=== PATIENT | female | born 1995 | race Caucasian/White ===

== ENCOUNTER 2018-07-30 10:13 | Emergency (ER) | payer OTHER, SELFPAY ==
[2018-07-30 10:15] VITALS: BP 155/93; PULSE 74; RESP 16; TEMP 36.8; O2SAT 99
--- NOTE | 2018-07-30 10:22 | ED.ANXIETY ---
HPI - Anxiety General Chief Complaint: Anxiety Stated Complaint: Psych Time Seen by Provider: 07/30/18 10:13 Source: patient, family and EMS Mode of arrival: EMS History of Present Illness HPI narrative: 22-year-old female presents by EMS for an excited delirium at the [facility]. Patient was being transported by her family for psychiatric evaluation [facility], per the request another family member whom works there. She has no existing psychiatric diagnosis but for the past few days has been acting very much out of sorts. She has no history of psychiatric illness and has never been hospitalized. Over the past few days the patient has become intensely paranoid about many things and has had rambling thoughts and ideas. She has not been ill and denies headache, fever or chills. She was seen by psychiatrist in billing him yesterday with an unknown disposition or plan. Today they were getting off the [place] and her behavior escalated and she became out of control and was trying to run and was potentially running into traffic in was a significant risk to herself. EMS was called and after attempts at verbal the escalation the patient continued to escalate and was therefore given ketamine 400 mg IM prior to her arrival. 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 Onset (ago): day(s) Quality: constant Place: home Provoking factors: none known Related Data Home Medications Medication Instructions Recorded Confirmed No Known Home Medications 07/30/18 07/30/18 Allergies Allergy/AdvReac Type Severity Reaction Status Date / Time No Known Drug Allergies Allergy Verified 07/30/18 10:29 Review of Systems Review of Systems All systems reviewed & are unremarkable except as noted in HPI and below Constitutional Denies chills, Denies fever(s), Denies lethargy and Denies weakness Eyes Denies change in vision, Denies eye discharge, Denies irritation and Denies loss of vision ENT Ears, Nose, Mouth, and Throat: Denies change in voice, Denies neck pain and Denies sore throat Cardiovascular Denies chest pain, Denies irregular heart rhythm, Denies lightheadedness, Denies palpitations, Denies dyspnea, Denies dyspnea on exertion and Denies orthopnea Respiratory Denies cough, Denies dyspnea, Denies dyspnea on exertion and Denies wheezing Gastrointestinal Gastrointestinal: Denies abdominal pain, Denies change in bowel habits, Denies diarrhea, Denies nausea and Denies vomiting Genitourinary Denies hematuria, Denies flank pain, Denies urinary incontinence and Denies urinary urgency Musculoskeletal Denies neck pain Integumentary/Breasts Denies pruritus, Denies erythema, Denies rash and Denies wounds Neurologic Reports behavioral changes, Denies confusion, Denies loss of vision and Denies weakness Psychiatric Reports anxiety, Reports behavioral changes, Denies confusion, Denies depression, Reports panic attacks, Reports paranoia, Denies homicidal ideation and Denies suicidal ideation Endocrine Denies palpitations Hematologic/Lymphatic Denies easy bruising Allergic/Immunologic Denies wheezing [facility] Social History Smoking Status: Never smoker Exam Initial Vital Signs Initial Vital Signs: Vital Signs Temperature 98.3 F 07/30/18 10:15 Pulse Rate 74 07/30/18 10:15 Respiratory Rate 16 07/30/18 10:15 Blood Pressure 155/93 H 07/30/18 10:15 Pulse Oximetry 99 07/30/18 10:15 Const General: cooperative and well developed Nutritional Appearance: well nourished Orientation: alert, awake, oriented x3 and not confused [facility] Head: normocephalic and atraumatic Ears: external ears normal and TM's normal bilaterally Nose: external nose normal and No nasal discharge Face and sinus: sinuses nontender, face symmetric, no sinus tenderness and No dry mucous membranes Mouth: oral mucosae normal and moist mucous membranes Teeth and gingiva: dentition normal Throat: tonsils normal and uvula midline Eyes General: appearance normal, both eyes and all related structures Eyelids: eyelids normal Conjunctivae: conjunctivae normal Sclera: sclerae normal Pupils: PERRL EOM: EOM intact bilaterally Neck Neck: normal visual inspection, trachea midline, No lymphadenopathy, No midline deformity and No JVD Lymphatic: No lymphedema Chest Chest: normal inspection of the chest Resp Effort & Inspection: normal respiratory effort, able to speak in complete sentences, no respiratory distress and no use of accessory muscles Auscultation: clear to auscultation bilaterally, no rales, no rhonchi and no wheezes Cardio Rate: regular rate Rhythm: regular rhythm Heart Sounds: no click, no gallops, no murmurs and no rubs Pulses: normal peripheral pulses GI Inspection: non-distended Palpation: soft, no hepatosplenomegaly, No guarding, No pulsatile mass and No tender Auscultation: normal bowel sounds Back/Spine/Pelvis Back: No CVA tenderness Cervical Spine: cervical ROM normal and No pain with cervical ROM Thoracic/Lumbar Spine: thoracic and lumbar spine normal to inspection Skin General: no rashes or lesions noted, No jaundice and No petechiae Neuro General: alert, oriented x3, gait normal and no focal motor deficits Speech: speech normal Extrem General: full ROM, no clubbing, cyanosis or edema, no pedal edema and no calf tenderness Psych Appearance: disheveled Mental Status: mental status grossly normal Speech and Movement: agitated and pressured speech Mood: anxious mood and paranoid Affect: anxious affect and irritable affect Attitude: cooperative Thought Content: normal and suicidality Judgment: judgment good Course Orders Ordered: ED Orders 07/30/18 12:37 Urine Drug Screen, Rapid Stat Discontinued Medications Sodium Chloride (Normal Saline 0.9%) 1,000 mls @ 1,000 mls/hr IV BOLUS ONE Stop: 07/30/18 11:17 Last Admin: 07/30/18 12:00 Dose: Not Given Lorazepam (Ativan) 2 mg IM NOW ONE Stop: 07/30/18 19:37 Last Admin: 07/30/18 20:01 Dose: 2 mg Olanzapine (Zyprexa Zydis) 10 mg PO NOW ONE Stop: 07/30/18 18:15 Last Admin: 07/30/18 18:14 Dose: 10 mg Reevaluation(s) Reevaluation #1: As the ketamine has worn off the patient has become visibly upset and confused. She has tried eloping on multiple occasions and is very paranoid and upset that we are trying to hurt her. She is struggling and fighting with providers and parents speaking nonsensically. She has been put into our room 13 as she is clearly a risk to injure herself. Violent restraint ordered. Reevaluation #2: Patient medically cleared. DCR called. Reevaluation #3: patient has calmed down and mentions that she thinks she has heard voices and/or seen hallucinations for some time but admits to never having a break like this. Her periods of clarity are interrupted by rapid changes in her behavior in which she tries to run and escape the department. She screams and cries and when she calms down mentions that she is terrified of what might happen to her. She has never been under the care of a psychiatrist in care is no diagnoses. Though she may have had symptoms for some time she absolutely has never had a significant breakdown like this. She has become gravely disabled and clearly cannot care for herself. Additional Reevaluation(s): Patient is becoming a bit agitated again, is open to receiving Ativan 2mg IM. 2035 patient resting comfortably, EMS here for transport Consultations Consultation #1: available bed found at [facility] by DCR. Vital Signs - 8 hr 07/30/18 10:15 07/30/18 11:05 Temperature 98.3 F Pulse Rate 74 Respiratory Rate 16 Blood Pressure 155/93 H Blood Pressure [Right Arm] 153/91 H Pulse Oximetry 99 MDM - Anxiety Differential Diagnosis Differential diagnosis: Likely panic disorder and acute anxiety Medical Records Attestation: I reviewed the patient's medical records. Lab Data Attestation: I reviewed the patient's lab results. Result diagrams: 07/30/18 10:22 07/30/18 10:22 Lab Results 07/30/18 07/30/18 07/30/18 Range/Units 10:22 10:22 10:22 WBC 8.1 (4.5-11.0) X10^3/uL RBC 4.82 (4.0-5.2) X10^6/uL Hgb 14.0 (12.0-16.0) g/dL Hct 40.6 (36-46) % MCV 84.1 (80-100) fL MCH 28.9 (26-34) PG MCHC 34.4 (30-36) % RDW 13.3 (11.6-14.8) % Plt Count 196 (150-400) X10^3/uL Neut % (Auto) 80.4 H (50-75) % Lymph % (Auto) 13.5 L (25-40) % [place] % (Auto) 5.6 (3-14) % Eos % (Auto) 0.1 L (2-4) % Baso % (Auto) 0.4 (0-2) % Neut # (Auto) 6500 H (2675-9429) /uL Sodium 146 H (137-145) mmol/L Potassium 3.4 (3.4-5.1) mmol/L Chloride 106 (98-107) mmol/L Carbon Dioxide 24 (22-32) mmol/L BUN 14 (7-17) mg/dL Creatinine 0.80 (0.52-1.04) mg/dL Estimated GFR > 60.0 (>60) mL/min BUN/Creatinine Ratio 17.5 (6-22) Glucose 111 H (70-100) mg/dL Calcium 9.8 (8.4-10.2) mg/dL Total Bilirubin 1.5 H (0.2-1.3) mg/dL AST 33 (14-36) IU/L ALT 35 (9-52) IU/L Alkaline Phosphatase 72 (38-126) U/L Total Protein 8.2 (6.3-8.2) g/dL Albumin 5.1 H (3.5-5.0) g/dL Globulin 3.1 (1.7-4.1) g/dL Albumin/Globulin Ratio 1.6 (1.0-2.8) TSH 0.63 (0.47-4.68) uIU/mL Salicylates < 1.0 (<20) mg/dL Urine Opiates Screen (Negative) Ur Oxycodone Screen (Negative) Urine Methadone Screen (Negative) Acetaminophen < 10 L (10-30) ug/mL Ur Barbiturates Screen (Negative) U Tricyclic Antidepress (Negative) Ur Phencyclidine Scrn (Negative) Ur Amphetamines Screen (Negative) U Methamphetamines Scrn (Negative) Ur MDMA Scrn (Ecstasy) (Negative) U Benzodiazepines Scrn (Negative) Urine Cocaine Screen (Negative) U Marijuana (THC) Screen (Negative) Ethyl Alcohol < 10 mg/dL 07/30/18 Range/Units 12:37 WBC (4.5-11.0) X10^3/uL RBC (4.0-5.2) X10^6/uL Hgb (12.0-16.0) g/dL Hct (36-46) % MCV (80-100) fL MCH (26-34) PG MCHC (30-36) % RDW (11.6-14.8) % Plt Count (150-400) X10^3/uL Neut % (Auto) (50-75) % Lymph % (Auto) (25-40) % [place] % (Auto) (3-14) % Eos % (Auto) (2-4) % Baso % (Auto) (0-2) % Neut # (Auto) (3303-7560) /uL Sodium (137-145) mmol/L Potassium (3.4-5.1) mmol/L Chloride (98-107) mmol/L Carbon Dioxide (22-32) mmol/L BUN (7-17) mg/dL Creatinine (0.52-1.04) mg/dL Estimated GFR (>60) mL/min BUN/Creatinine Ratio (6-22) Glucose (70-100) mg/dL Calcium (8.4-10.2) mg/dL Total Bilirubin (0.2-1.3) mg/dL AST (14-36) IU/L ALT (9-52) IU/L Alkaline Phosphatase (38-126) U/L Total Protein (6.3-8.2) g/dL Albumin (3.5-5.0) g/dL Globulin (1.7-4.1) g/dL Albumin/Globulin Ratio (1.0-2.8) TSH (0.47-4.68) uIU/mL Salicylates (<20) mg/dL Urine Opiates Screen Negative (Negative) Ur Oxycodone Screen Negative (Negative) Urine Methadone Screen Negative (Negative) Acetaminophen (10-30) ug/mL Ur Barbiturates Screen Negative (Negative) U Tricyclic Antidepress Negative (Negative) Ur Phencyclidine Scrn Negative (Negative) Ur Amphetamines Screen Negative (Negative) U Methamphetamines Scrn Negative (Negative) Ur MDMA Scrn (Ecstasy) Negative (Negative) U Benzodiazepines Scrn Negative (Negative) Urine Cocaine Screen Negative (Negative) U Marijuana (THC) Screen Positive H (Negative) Ethyl Alcohol mg/dL Point of Care Testing Test Results Negative Urine Dip Bedside Urine Glucose Negative Bedside Urine Bilirubin - Negative Bedside Urine Ketone ++ 40 Urine Specific Diagonal 1.030 Bedside Urine Occult Blood - Negative Bedside Urine pH 6.0 Bedside Urine Protein + 30 Bedside Urine Urobilinogen - Negative Bedside Urine Nitrite - Negative Bedside Urine Leukocytes - Negative Esterase Discharge Plan Departure Patient Disposition: Xfer Psychiatric Hosp Clinical Impression: Acute psychosis
[2018-07-30 10:34] LABS: Add Manual Diff / Slide Review NO; Basophils Percent Auto 0.4 % (0-2); Eosinophils Percent Auto 0.1 % (2-4); Hematocrit 40.6 % (36-46); Lymphocytes Percent Auto 13.5 % (25-40); Mean Corpuscular HGB Conc 34.4 % (30-36); Mean Corpuscular Hemoglobin 28.9 PG (26-34); Mean Corpuscular Volume 84.1 fL (80-100); Monocytes Percent Auto 5.6 % (3-14); Neutrophils Absolute Auto 6500 /uL (3000-5900); Neutrophils Percent Auto 80.4 % (50-75); Platelet Count 196 X10^3/uL (150-400); Red Blood Cell Count 4.82 X10^6/uL (4.0-5.2); Red Cell Distribution Width 13.3 % (11.6-14.8); White Blood Cell Count 8.1 X10^3/uL (4.5-11.0)
[2018-07-30 10:44] LABS: Acetaminophen < 10 ug/mL (10-30); Alanine Aminotransferase 35 IU/L (9-52); Albumin 5.1 g/dL (3.5-5.0); Albumin Globulin Ratio 1.6 (1.0-2.8); Alkaline Phosphatase 72 U/L (38-126); Aspartate Aminotransferase 33 IU/L (14-36); BUN Creatinine Ratio 17.5 (6-22); Bilirubin Total 1.5 mg/dL (0.2-1.3); Blood Urea Nitrogen 14 mg/dL (7-17); Calcium 9.8 mg/dL (8.4-10.2); Carbon Dioxide 24 mmol/L (22-32); Chloride 106 mmol/L (98-107); Estimated Glomerular Filt Rate > 60.0 mL/min (>60); Ethanol (ETOH) < 10 mg/dL; Globulin 3.1 g/dL (1.7-4.1); Glucose 111 mg/dL (70-100); HEMOLYSIS < 15 (0-50); Potassium 3.4 mmol/L (3.4-5.1); Sodium 146 mmol/L (137-145); Total Protein 8.2 g/dL (6.3-8.2)
[2018-07-30 10:50] LABS: Salicylate < 1.0 mg/dL (<20)
[2018-07-30 11:05] VITALS: BP 153/91
[2018-07-30 11:31] LABS: Thyroid Stimulating Hormone 0.63 uIU/mL (0.47-4.68)
--- NOTE | 2018-07-30 11:31 | PC.NURSE ---
Pt does not have IV
--- NOTE | 2018-07-30 11:57 | PC.NURSE ---
Cannot do psych or anxiety assessments due to medications given [employer]
--- NOTE | 2018-07-30 12:38 | PC.NURSE ---
Patient was wandering the tee by the nursing station and was purposefully dropping herself on her knees to then lay on the floor. I assisted patients mother in picking her up and walking her back to the bedroom. After patient was vomiting she looked at me and grabbed my butt while making eye contact. I redirected her to put her hands on herself, and got her laying back down in bed.
[2018-07-30 12:51] LABS: Urine Amphetamines Negative (Negative); Urine Barbiturates Negative (Negative); Urine Benzodiazepines Negative (Negative); Urine Cocaine Negative (Negative); Urine MDMA Negative (Negative); Urine Methadone Negative (Negative); Urine Methamphetamines Negative (Negative); Urine Morphine/Opi cutoff 2000 Negative (Negative); Urine Oxycodone Negative (Negative); Urine Phencyclidine Negative (Negative); Urine Tetrahydrocannabinol Positive (Negative); Urine Tricyclic Antidepressant Negative (Negative)
--- NOTE | 2018-07-30 13:13 | ED_ITS ---
HPI - Anxiety General Chief Complaint: Anxiety Stated Complaint: Psych Time Seen by Provider: 07/30/18 10:13 Source: patient, family and EMS Mode of arrival: EMS History of Present Illness HPI narrative: 22-year-old female presents by EMS for an excited delirium at the [facility]. Patient was being transported by her family for psychiatric evaluation [facility], per the request another family member whom works there. She has no existing psychiatric diagnosis but for the past few days has been acting very much out of sorts. She has no history of psychiatric illness and has never been hospitalized. Over the past few days the patient has become intensely paranoid about many things and has had rambling thoughts and ideas. She has not been ill and denies headache, fever or chills. She was seen by psychiatrist in billing him yesterday with an unknown disposition or plan. Today they were getting off the [place] and her behavior escalated and she became out of control and was trying to run and was potentially running into traffic in was a significant risk to herself. EMS was called and after attempts at verbal the escalation the patient continued to escalate and was therefore given ketamine 400 mg IM prior to her arrival. 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 Onset (ago): day(s) Quality: constant Place: home Provoking factors: none known Related Data Home Medications Medication Instructions Recorded Confirmed No Known Home Medications 07/30/18 07/30/18 Allergies Allergy/AdvReac Type Severity Reaction Status Date / Time No Known Drug Allergies Allergy Verified 07/30/18 10:29 Review of Systems Review of Systems All systems reviewed & are unremarkable except as noted in HPI and below Constitutional Denies chills, Denies fever(s), Denies lethargy and Denies weakness Eyes Denies change in vision, Denies eye discharge, Denies irritation and Denies loss of vision ENT Ears, Nose, Mouth, and Throat: Denies change in voice, Denies neck pain and Denies sore throat Cardiovascular Denies chest pain, Denies irregular heart rhythm, Denies lightheadedness, Denies palpitations, Denies dyspnea, Denies dyspnea on exertion and Denies orthopnea Respiratory Denies cough, Denies dyspnea, Denies dyspnea on exertion and Denies wheezing Gastrointestinal Gastrointestinal: Denies abdominal pain, Denies change in bowel habits, Denies diarrhea, Denies nausea and Denies vomiting Genitourinary Denies hematuria, Denies flank pain, Denies urinary incontinence and Denies urinary urgency Musculoskeletal Denies neck pain Integumentary/Breasts Denies pruritus, Denies erythema, Denies rash and Denies wounds Neurologic Reports behavioral changes, Denies confusion, Denies loss of vision and Denies weakness Psychiatric Reports anxiety, Reports behavioral changes, Denies confusion, Denies depression , Reports panic attacks, Reports paranoia, Denies homicidal ideation and Denies suicidal ideation Endocrine Denies palpitations Hematologic/Lymphatic Denies easy bruising Allergic/Immunologic Denies wheezing [facility] Social History Smoking Status: Never smoker Exam Initial Vital Signs Initial Vital Signs: Vital Signs Temperature 98.3 F 07/30/18 10:15 Pulse Rate 74 07/30/18 10:15 Respiratory Rate 16 07/30/18 10:15 Blood Pressure 155/93 H 07/30/18 10:15 Pulse Oximetry 99 07/30/18 10:15 Const General: cooperative and well developed Nutritional Appearance: well nourished Orientation: alert, awake, oriented x3 and not confused [facility] Head: normocephalic and atraumatic Ears: external ears normal and TM's normal bilaterally Nose: external nose normal and No nasal discharge Face and sinus: sinuses nontender, face symmetric, no sinus tenderness and No dry mucous membranes Mouth: oral mucosae normal and moist mucous membranes Teeth and gingiva: dentition normal Throat: tonsils normal and uvula midline Eyes General: appearance normal, both eyes and all related structures Eyelids: eyelids normal Conjunctivae: conjunctivae normal Sclera: sclerae normal Pupils: PERRL EOM: EOM intact bilaterally Neck Neck: normal visual inspection, trachea midline, No lymphadenopathy, No midline deformity and No JVD Lymphatic: No lymphedema Chest Chest: normal inspection of the chest Resp Effort & Inspection: normal respiratory effort, able to speak in complete sentences, no respiratory distress and no use of accessory muscles Auscultation: clear to auscultation bilaterally, no rales, no rhonchi and no wheezes Cardio Rate: regular rate Rhythm: regular rhythm Heart Sounds: no click, no gallops, no murmurs and no rubs Pulses: normal peripheral pulses GI Inspection: non-distended Palpation: soft, no hepatosplenomegaly, No guarding, No pulsatile mass and No tender Auscultation: normal bowel sounds Back/Spine/Pelvis Back: No CVA tenderness Cervical Spine: cervical ROM normal and No pain with cervical ROM Thoracic/Lumbar Spine: thoracic and lumbar spine normal to inspection Skin General: no rashes or lesions noted, No jaundice and No petechiae Neuro General: alert, oriented x3, gait normal and no focal motor deficits Speech: speech normal Extrem General: full ROM, no clubbing, cyanosis or edema, no pedal edema and no calf tenderness Psych Appearance: disheveled Mental Status: mental status grossly normal Speech and Movement: agitated and pressured speech Mood: anxious mood and paranoid Affect: anxious affect and irritable affect Attitude: cooperative Thought Content: normal and suicidality Judgment: judgment good Course Orders Ordered: ED Orders 07/30/18 12:37 Urine Drug Screen, Rapid Stat Discontinued Medications Sodium Chloride (Normal Saline 0.9%) 1,000 mls @ 1,000 mls/hr IV BOLUS ONE Stop: 07/30/18 11:17 Last Admin: 07/30/18 12:00 Dose: Not Given Lorazepam (Ativan) 2 mg IM NOW ONE Stop: 07/30/18 19:37 Last Admin: 07/30/18 20:01 Dose: 2 mg Olanzapine (Zyprexa Zydis) 10 mg PO NOW ONE Stop: 07/30/18 18:15 Last Admin: 07/30/18 18:14 Dose: 10 mg Reevaluation(s) Reevaluation #1: As the ketamine has worn off the patient has become visibly upset and confused. She has tried eloping on multiple occasions and is very paranoid and upset that we are trying to hurt her. She is struggling and fighting with providers and parents speaking nonsensically. She has been put into our room 13 as she is clearly a risk to injure herself. Violent restraint ordered. Reevaluation #2: Patient medically cleared. DCR called. Reevaluation #3: patient has calmed down and mentions that she thinks she has heard voices and/or seen hallucinations for some time but admits to never having a break like this. Her periods of clarity are interrupted by rapid changes in her behavior in which she tries to run and escape the department. She screams and cries and when she calms down mentions that she is terrified of what might happen to her. She has never been under the care of a psychiatrist in care is no diagnoses. Though she may have had symptoms for some time she absolutely has never had a significant breakdown like this. She has become gravely disabled and clearly cannot care for herself. Additional Reevaluation(s): Patient is becoming a bit agitated again, is open to receiving Ativan 2mg IM. 2035 patient resting comfortably, EMS here for transport Consultations Consultation #1: available bed found at [facility] by DCR. Vital Signs - 8 hr 07/30/18 10:15 07/30/18 11:05 Temperature 98.3 F Pulse Rate 74 Respiratory Rate 16 Blood Pressure 155/93 H Blood Pressure [Right Arm] 153/91 H Pulse Oximetry 99 MDM - Anxiety Differential Diagnosis Differential diagnosis: Likely panic disorder and acute anxiety Medical Records Attestation: I reviewed the patient's medical records. Lab Data Attestation: I reviewed the patient's lab results. Result diagrams: 07/30/18 10:22 07/30/18 10:22 Lab Results 07/30/18 07/30/18 07/30/18 Range/Units 10:22 10:22 10:22 WBC 8.1 (4.5-11.0) X10^3/uL RBC 4.82 (4.0-5.2) X10^6/uL Hgb 14.0 (12.0-16.0) g/dL Hct 40.6 (36-46) % MCV 84.1 (80-100) fL MCH 28.9 (26-34) PG MCHC 34.4 (30-36) % RDW 13.3 (11.6-14.8) % Plt Count 196 (150-400) X10^3/uL Neut % (Auto) 80.4 H (50-75) % Lymph % (Auto) 13.5 L (25-40) % [place] % (Auto) 5.6 (3-14) % Eos % (Auto) 0.1 L (2-4) % Baso % (Auto) 0.4 (0-2) % Neut # (Auto) 6500 H (9175-9831) /uL Sodium 146 H (137-145) mmol/L Potassium 3.4 (3.4-5.1) mmol/L Chloride 106 (98-107) mmol/L Carbon Dioxide 24 (22-32) mmol/L BUN 14 (7-17) mg/dL Creatinine 0.80 (0.52-1.04) mg/dL Estimated GFR > 60.0 (>60) mL/min BUN/Creatinine Ratio 17.5 (6-22) Glucose 111 H (70-100) mg/dL Calcium 9.8 (8.4-10.2) mg/dL Total Bilirubin 1.5 H (0.2-1.3) mg/dL AST 33 (14-36) IU/L ALT 35 (9-52) IU/L Alkaline Phosphatase 72 (38-126) U/L Total Protein 8.2 (6.3-8.2) g/dL Albumin 5.1 H (3.5-5.0) g/dL Globulin 3.1 (1.7-4.1) g/dL Albumin/Globulin Ratio 1.6 (1.0-2.8) TSH 0.63 (0.47-4.68) uIU/mL Salicylates < 1.0 (<20) mg/dL Urine Opiates Screen (Negative) Ur Oxycodone Screen (Negative) Urine Methadone Screen (Negative) Acetaminophen < 10 L (10-30) ug/mL Ur Barbiturates Screen (Negative) U Tricyclic Antidepress (Negative) Ur Phencyclidine Scrn (Negative) Ur Amphetamines Screen (Negative) U Methamphetamines Scrn (Negative) Ur MDMA Scrn (Ecstasy) (Negative) U Benzodiazepines Scrn (Negative) Urine Cocaine Screen (Negative) U Marijuana (THC) Screen (Negative) Ethyl Alcohol < 10 mg/dL 07/30/18 Range/Units 12:37 WBC (4.5-11.0) X10^3/uL RBC (4.0-5.2) X10^6/uL Hgb (12.0-16.0) g/dL Hct (36-46) % MCV (80-100) fL MCH (26-34) PG MCHC (30-36) % RDW (11.6-14.8) % Plt Count (150-400) X10^3/uL Neut % (Auto) (50-75) % Lymph % (Auto) (25-40) % [place] % (Auto) (3-14) % Eos % (Auto) (2-4) % Baso % (Auto) (0-2) % Neut # (Auto) (2896-4126) /uL Sodium (137-145) mmol/L Potassium (3.4-5.1) mmol/L Chloride (98-107) mmol/L Carbon Dioxide (22-32) mmol/L BUN (7-17) mg/dL Creatinine (0.52-1.04) mg/dL Estimated GFR (>60) mL/min BUN/Creatinine Ratio (6-22) Glucose (70-100) mg/dL Calcium (8.4-10.2) mg/dL Total Bilirubin (0.2-1.3) mg/dL AST (14-36) IU/L ALT (9-52) IU/L Alkaline Phosphatase (38-126) U/L Total Protein (6.3-8.2) g/dL Albumin (3.5-5.0) g/dL Globulin (1.7-4.1) g/dL Albumin/Globulin Ratio (1.0-2.8) TSH (0.47-4.68) uIU/mL Salicylates (<20) mg/dL Urine Opiates Screen Negative (Negative) Ur Oxycodone Screen Negative (Negative) Urine Methadone Screen Negative (Negative) Acetaminophen (10-30) ug/mL Ur Barbiturates Screen Negative (Negative) U Tricyclic Antidepress Negative (Negative) Ur Phencyclidine Scrn Negative (Negative) Ur Amphetamines Screen Negative (Negative) U Methamphetamines Scrn Negative (Negative) Ur MDMA Scrn (Ecstasy) Negative (Negative) U Benzodiazepines Scrn Negative (Negative) Urine Cocaine Screen Negative (Negative) U Marijuana (THC) Screen Positive H (Negative) Ethyl Alcohol mg/dL Point of Care Testing Test Results Negative Urine Dip Bedside Urine Glucose Negative Bedside Urine Bilirubin - Negative Bedside Urine Ketone ++ 40 Urine Specific [place] 1.030 Bedside Urine Occult Blood - Negative Bedside Urine pH 6.0 Bedside Urine Protein + 30 Bedside Urine Urobilinogen - Negative Bedside Urine Nitrite - Negative Bedside Urine Leukocytes - Negative Esterase Discharge Plan Departure Patient Disposition: Xfer Psychiatric Hosp Clinical Impression: Acute psychosis
--- NOTE | 2018-07-30 13:23 | CM.MNRNOTE ---
Call made to DCR for evaluation. Pt is forcefully attempting to leave pt room. Parents are struggling physically to keep her in room. PT is confused and wants to leave but it is unclear where she would go. Moved to room 13 for patient and parents safety.
--- NOTE | 2018-07-30 13:27 | PC.NURSE ---
pt got moved to room 13, did not want to go in the room. Ended up getting pt in the room, both her and parents are in there now. Door is shut and locked
--- NOTE | 2018-07-30 14:02 | PC.NURSE ---
pt was up and leaning on the door, now she is laying back in bed with moms boyfriend. She has been up and down repeatedly
--- NOTE | 2018-07-30 14:07 | PC.NURSE ---
pt has been up standing at the door and singing. pt also has been yelling a lot
--- NOTE | 2018-07-30 14:08 | PC.NURSE ---
Singing in room. Will come to door and yell Let me out. Parents will redirect. Talking from under the door at this time with charge nurse. Plan for care is explained
--- NOTE | 2018-07-30 14:19 | PC.NURSE ---
pt laying on the ground by the door talking under it about how she is feeling manipulated and that she wants the staff to 'lay it on me
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
--- NOTE | 2018-07-30 14:28 | PC.NURSE ---
pt saying that the staff is just going to watch her now. pt states I dont know anything, you guys think I do but I dont know anything
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
--- NOTE | 2018-07-30 14:54 | PC.NURSE ---
Assured pt that [facility] is coming to see and talk with her.
--- NOTE | 2018-07-30 15:30 | PC.NURSE ---
1500 pt going between lying on floor and standing and looking out of window. 1507 States I love my hands because they create my art. Had said before that she wanted to destroy her hands so (she) could feel their pain 1515 S/W DCR Maryse. She will be here in 30-45 minutes. Fax of records sent to [facility] for possible admit there.
--- NOTE | 2018-07-30 15:39 | PC.NURSE ---
Patient is in room talking with family and returning to the door to try and get anyones attention that walks by.
--- NOTE | 2018-07-30 15:41 | PC.NURSE ---
1540 pt up by door, headbanging, currently pacing around room pt yelling at parents and trying to get out back door pt laying on bed with father 1547 pt leaning up against the door and singing, went and slammed bathroom door, then came and banged on the front door window All of pts belongings locked in the cupboard with pts moms phone 1600 pt still standing in front of the door- asked her if she needed something and she did not respond she has been pacing back and forth, is back at the door staring out the window again 1612 pt trying to communicate via hand signals, will not verbally communicate unless she is singing 1620 DCR is speaking with pt, pt wanted to leave room when DCR entered and got aggravated, stuck feet and fingers in between door and door jam so we could not close it. 1638 pt just finished talking with DCR, is now sitting on chair in room, pt was calm and not trying to get out of room when mom and DCR exited. Pt stated she wants a snack and a small sealed bottle of water. 1645 pt is back standing at the door again, shouting & aggravated flailing arms and shouting at dad 1700 moved bed to the other door, pressed it against the door and is laying down on it 1715 pt still laying on bed, resting 1725 pt standing up at the door, looking out the window and singing pacing back and forth, crying against the window
--- NOTE | 2018-07-30 17:35 | PC.NURSE ---
1735 pt seems to be aggravated, arguing with father 1739 pt laying down on bed and resting 174 pt yelling, standing flush against corner of room. pacing from corner to corner 175 pt sitting on chair in the middle of the room talking to dad, and RN entered to give a med. pt still sitting calmly JACQUIE and medicated pt, she took the med calmly and willingly
[2018-07-30] MEDS: OLANZapine ODT 10 MG TAB PO (18:14)
--- NOTE | 2018-07-30 18:20 | PC.NURSE ---
1820 pt sitting on floor talking to parents
--- NOTE | 2018-07-30 18:30 | PC.NURSE ---
pt is standing by the door, touching the intercom but not speaking 183 DCR went in to have pt look over paperwork and provide information. Pt was asking about her shoes, was wanting a pair to wear. Was told they would be given to family before she is transported. Pt was eyeing the door and started to come toward the exit. Once DCR left room pt tried to run towards the exit, parents tried to restrain, the door was shut and locked. When pt was asked to provide SSN for paperwork, she stated I know it but I am not feeling very trustworthy towards you, I just wish the psychiatrist with green socks would come back
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
--- NOTE | 2018-07-30 19:32 | PC.NURSE ---
Report called to [facility] at [facility]. Requests we give ativan NOW. RN accepting care of this pt is aware
[2018-07-30] MEDS: LORazepam 2 MG/ML SYRINGE IM (20:01)
--- NOTE | 2018-07-30 20:01 | PC.NURSE ---
1999 pt started signaling, when asked what she needed she said that she ripped up her paper and I dont know why and was wondering if she should flush the paper down the toilet or if the staff wanted to come get them. I told her not to flush them and that I will get a trash bag. When I came back pt stated that she didnt want to throw them away- instead she wanted to make art with them. 2005 pt ended up flushing the items against the staff's advice. pt was pacing in circles around the room, is now laying down on the mattress again
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
--- NOTE | 2018-07-30 20:16 | PC.NURSE ---
pt is laying on bed now, seems to be resting
--- NOTE | 2018-07-30 20:30 | PC.NURSE ---
2030 pt still laying on bed resting
[2018-07-30 21:30] VITALS: PULSE 98; RESP 20; O2SAT 100
--- NOTE | 2018-07-30 21:31 | PC.NURSE ---
parents took belongings home. pt left in leggings and sweat shirt. pt left via [facility] service.
== END 2018-07-30 20:35 ==
PROVIDERS: Emergency Provider Emergency Medicine
DX: F23 Brief psychotic disorder (principal)
CPT/HCPCS: 36415; 80053; 80305; 80320; 80329; 81003; 81025; 84443; 85025; 96372; 99285; G0480; J2060